=== PATIENT | male | born 1970 | race Two or more races ===

== ENCOUNTER 2019-10-22 09:13 | Emergency (ER) | payer SELFPAY ==
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
== END 2019-10-22 10:08 | disposition home or self-care (01) ==
LOC: JD.ED 09:13
DX: R53.83 Other fatigue (principal); Z02.79 Encounter for issue of other medical certificate
CPT/HCPCS: 99281; 99282

== ENCOUNTER 2020-03-03 08:10 | Emergency (ER) | payer SELFPAY ==
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
--- NOTE | 2020-03-30 12:33 | CR ---
Reason for Exam: Prelim report, submitted 03/03/2020 10:10:[address] Meg Oviedo: Exam submitted for final signature without edit on 03/30/2020. PROCEDURE INFORMATION: Exam: XR Chest, 1 View Exam date and time: 03/03/2020 8:36 AM Age: 50 years old Clinical indication: Patient HX: Cough, covid precautions TECHNIQUE: Imaging protocol: XR of the chest Views: 1 view. COMPARISON: No relevant prior studies available. FINDINGS: Lungs: Unremarkable. No consolidation. Pleural space: Unremarkable. No pleural effusion. No pneumothorax. Heart/Mediastinum: Unremarkable. No cardiomegaly. Bones/joints: Unremarkable. IMPRESSION: No acute findings. Thank you for allowing us to participate in the care of your patient. Dictated and Authenticated by: Meg Oviedo MD 03/30/2020 9:30 AM Central Time ([place] & [place]) [place]
== END 2020-03-03 12:05 | disposition home or self-care (01) ==
LOC: JD.ED 08:10
DX: U07.1 COVID-19 (principal)
CPT/HCPCS: 36415; 71045; 71045-26; 80053; 82728; 83615; 85007; 85027; 86140; 99282; 99283-25; U0002